=== PATIENT | female | born 1965 ===

== ENCOUNTER 2024-07-24 05:12 | Day surgery (SDC) | payer OTHER ==
[2024-07-15 09:42] VITALS: BP 10/70
[2024-07-15 09:52] LABS: URINE APPEARANCE Clear; URINE BILIRRUBIN Negative (NEGATIVE); URINE BLOOD Negative; URINE COLOR Yellow; URINE GLUCOSE Negative (NEGATIVE); URINE KETONE Negative (NEGATIVE); URINE LEUKOCYTE Trace; URINE NITRATE Negative; URINE PROTEIN Negative (NEGATIVE); URINE UROBILINOGEN 0.2 E.U./dl
[2024-07-15 09:53] LABS: URINE BACTERIA 51.6 uL (0.0-1933); URINE EPITHELIAL CELLS 14.8 uL (0.0-38.8); URINE RBC 4.1 uL (0.0-20.8); URINE WBC 9.4 uL (0.0-23.2)
[2024-07-15 10:01] LABS: HEMATOCRIT 41.1 % (36.0-45.00); HEMOGLOBIN 13.9 g/dL (12.0-15.00); MEAN CORPUSCULAR HEMOGLOBIN 31.8 pg (27.00-32.0); MEAN CORPUSCULAR HGB CONC 33.8 g/dl (32.0-36.0); PLATELET COUNT 254 K/uL (150-450); RED BLOOD COUNT 4.37 M/uL (4.00-6.00); RED CELL DISTRIBUTION WIDTH 13.8 % (11.5-14.5)
[2024-07-15 10:15] LABS: INR 0.98; PARTIAL THROMBOPLASTIN TIME 28.7 SECONDS (22.0-34.0); PROTHROMBIN TIME 10.7 SECONDS (9.0-11.5)
[2024-07-15 11:32] LABS: ALBUMIN 4.4 gm/dL (3.4-5.0); BILIRUBIN TOTAL 0.61 mg/dL (0.3-1.2); CALCIUM 10.3 mg/dL (8.5-10.1); CREATININE SERUM 0.87 mg/dL (0.55-1.02); GFR 67.35; GLOBULINA 4.3 G/DL (2.4-3.5); POTASSIUM 4.18 mEq/L (3.5-5.1); TOTAL PROTEIN 8.7 gm/dL (6.4-8.2)
[~2024-07-24] VITALS: Ht 157.5 cm; Wt 63.5 kg
[~2024-07-24 05:12] MED LIST: IRBESARTAN300 MG PO; LIPITOR20 MG PO; SINGULAIR10 MG PO; TOPROL XL25 M1 PO
[2024-07-24] MEDS ORDERED: POVIDONE-IODINE SCRUB 118 ML BOTT TOP ONE (09:30)
[2024-07-24] MEDS ORDERED: POVIDONE-IODINE 118 ML BOTT TOP ONE (09:30)
[2024-07-24] MEDS ORDERED: NEOMYCIN/POLYMYXIN B/HYDROCORT 20 DR/ML BOTTLE OT ONE (09:30)
[2024-07-24] MEDS ORDERED: LIDOCAINE HCL 1%/EPINEPHRINE 20ML VIAL IJ ONE (09:30)
[2024-07-24] MEDS ORDERED: EPINEPHRINE HCL/PF 1 MG/ML AMPUL IR SCH (09:30)
[2024-07-24] MEDS ORDERED: CEFAZOLIN SODIUM 1,000 MG VIAL IV SCH (09:30)
[2024-07-24] MEDS ORDERED: NEOMYCIN/BACITRACIN/POLYMYXINB 14 G TUBE TOP ONE (09:30)
[2024-07-24] MEDS ORDERED: KETOROLAC TROMETHAMINE 60 MG VIAL IM PRN (11:00)
[2024-07-24] MEDS ORDERED: PROMETHAZINE HCL 25 MG/ML AMPUL IM PRN (11:00)
[2024-07-24] MEDS ORDERED: MORPHINE SULFATE 4 MG/ML VIAL IV ONE (12:00)
== END 2024-07-24 13:55 | disposition home or self-care (01) ==
LOC: CIR.AMB 05:12
PROVIDERS: ATTEND Otolaryngology Otology & Neurotology
DX: H65.21 Chronic serous otitis media, right ear (principal); H72.01 Central perforation of tympanic membrane, right ear; H74.11 Adhesive right middle ear disease